=== PATIENT | female | born 1970 | race African-American/Black ===

== ENCOUNTER 2022-09-17 14:30 | Outpatient (RCR) | payer MEDICARE, MEDICAID, SELFPAY ==
--- NOTE | 2022-08-29 12:19 | HP.OTEVAL ---
Patient's Visit Information TRUPTI PAZ is a 52 year old F, referred to Occupational Therapy by SOPHIA SHOEMAKER, with a diagnosis of lymphedema. Date of Evaluation: 08/23/22 Occupational Therapist: Erika Stover, ORTIZR/Marci, CHT - Subjective This 52 year old female was seen for OT eval with dx of BLE with lymphedema- pt states she started getting swelling in LE for about 5 years. pt states she has been seen by a lymphedema clinic in the past 6-8 months ago. pt states she does use 20-30mmHg compression socks and has compression pump 4 chamber pump for her LE pt advised to use compression pump 3x a day for 60 min. pt states she has not used 3x a day but will use 1-2x a day as she can tolerate. pt would like to know what more she can do to improve her lymphedema mtg. - Lymphedema (Circumferential Measure) Mid-foot: right 27cm left 28cm Ankle: right 34cm left 37cm Lower calf: right 46cm left 45cm Largest calf: right 56cm left 58cm Below knee: right 52cm left 52cm - Lower Limb Functional Index Lower Extremity Functional Score: 22 - Goals Demonstrate a 20% reduction in edema by d/c: Yes Demonstrate adequate knowledge of self-massage by 2nd week: Yes Demonstrate adequate knowledge skin care/prec by 2nd week: Yes Demonstrate adequate knowledge therapeutic exercises by d/c: Yes Select approp compression garment w/donning/care/wear by d/c: Yes Voice need to replace compression garment every 4-6mo by dc: Yes - Rehabilitation General Assessment: pt demo with stage II lymphedema and would benefit from skilled OT services for 2-3 visits to ed. pt on life long mtg of her lymphedema, and use of compression socks, compression alternatives (velcro closure) as well as lymph stimulation ex, and self manual lymph massage to perform prior to her compression pump use. pt demo understanding and agree to POC. Rehabilitation Potential: Questionable - Anticipated Interventions Education re Diagnosis, Education re Life-long lymphedema Management, Education re Self-Bandaging Techniques, Education re Skin Care and Precautions, Education re Self Massage Techniques, Education re Correct Donning Tech,Care&Wearing Sched Comp Garments, Caregiver Training, Home Program - Visit Plan TEXT: Thank you for the opportunity to evaluate your patient. For Medicare and Medicare HMO plans, please review the plan of care and approve it. It will need to be FAXED BACK to us at [phone] for Medicare purposes. Please let me know if there are questions or concerns regarding this plan of care. Physician Signature: Date:
--- NOTE | 2022-12-05 15:13 | HP.OT.NRP ---
TRUPTI PAZ was seen in my office for initial evaluation on 08/23/22. The following Plan of Care was established for this patient: Plan: pt to return in 3 weeks for new measurements Anticipated Interventions: Education re Diagnosis, Education re Life-long lymphedema Management, Education re Self-Bandaging Techniques, Education re Skin Care and Precautions, Education re Self Massage Techniques, Education re Correct Donning Tech,Care&Wearing Sched Comp Garments, Caregiver Training, Home Program This patient was last seen in our office 09/17/22. Pertinent comments regarding their Occupational therapy will appear below: pt was seen in OT. No further apts have been scheduled. Due to time lapse in services pt d/c at this time. At this point I will be discontinuing this patient from occupational therapy. I would be happy to see this patient again in the future if found appropriate by the physician. Thank you! Erika Stover, OTR/L, CHT
== END 2022-09-17 19:00 | disposition home or self-care (01) ==
LOC: OT 14:30
DX: I89.0 Lymphedema, not elsewhere classified (principal)
CPT/HCPCS: 97110; 97166; 97530

== ENCOUNTER 2023-03-19 08:46 | Outpatient (RCR) | payer MEDICARE, MEDICAID, SELFPAY ==
--- NOTE | 2023-03-20 09:56 | HP.OTEVAL ---
Patient's Visit Information Visit Information Visit Information: TRUPTI PAZ is a 52 year old F, referred to Occupational Therapy by RICHARD CALIXTO, with a diagnosis of lymphedema. Date of Evaluation: 03/19/23 Occupational Therapist: Erika Stover, BRYANT/Marci, CHT Subjective Subjective: This 52 year old female arrives with bilateral LE lymphedema dx - concerns for lymphedema wrapping products and progress. Pt presented to this clinic August 23, 2022 for initial eval here, stating she was using 20-30 mmHg compression socks. Pt states she has been performing self massage for lymphedema for whole body and is constantly moving knees and ankles while sitting at a computer throughout the day. Pt is wondering about garments being and the correct size for her. ADLs Comments: Pt has assistance with self-care tasks at home in the AM and PM. Aid assists in donning wraps and performing LB lymph massage. Lymphedema (Circumferential Measure) Mid-foot: R 28cm L 29cm Ankle: R 37cm L 38cm Lower calf: R 38cm L 39cm Largest calf: R 56cm L 58.5cm Below knee: R 62cm L 62cm Lower Exremity Comments: Previous Measurements from August Eval - Mid foot: R 27cm L 28cm Ankle: R 34 cm L 37cm Lower calf: R 46cm L 45cm Largest calf: R 56cm L 58cm Below knee: R 52cm L 52cm Pt has been managing lymphedema well over all with the biggest difference and concern for below knee with a 10 cm difference. Lower Limb Functional Index Lower Extremity Functional Score: 33 Goals Goal: Patient will demonstrate a 20% reduction in edema by discharge: Yes Goal: Patient will demonstrate adequate knowledge of self-bandaging by the end of the first week.: Yes Goal: Patient will demonstrate adequate knowledge of self-massage by the end of the second week.: Yes Goal: Patient will demonstrate adequate knowledge of skin care and precautions by the end of the first week.: Yes Goal: Patient will demonstrate adequate knowledge of therapeutic exercises by discharge.: Yes Goal: Patient will select an appropriate compression garment and demonstrate adequate knowledge of correct donning technique, care and wearing schedule by discharge.: Yes Goal: Patient will voice understanding of need to replace compression garment every four to six months by discharge.: Yes Goal:: ed. pt on life long mtg and why exercise and self massage is important. Rehabilitation General Assessment: Pt demo with stage II lymphedema. Pt has been managing lymphedema conservatively and had compression pump to assist with circulation. Due to increase in circumference with measurements there is some concerns with proper management. Pt will benefit from skilled OT for further education and management of lymphedema from 2-3 more visits. Pt edu in self-massage, increase activity to activate groin lymph nodes, and proper fitting compression socks/ or velcro closure compression alternatives. Pt agreeable to POC and verbalizes understanding of edu this date.Therapy session was directly supervised and doc. approved by Erika Stover OTR/Marci,CHT. Rehabilitation Potential: Excellent Anticipated Interventions Anticipated Interventions: Edema Control, Joint Protection/Energy Conservation, Education re Diagnosis, Manual Lymph Drainage, Education re Life-long lymphedema Management, Education re Skin Care and Precautions, Education re Self Massage Techniques, Education re Correct Donning Tech,Care&Wearing Sched Comp Garments, Caregiver Training and Home Program Visit Plan TEXT: Thank you for the opportunity to evaluate your patient. For Medicare and Medicare HMO plans, please review the plan of care and approve it. It will need to be FAXED BACK to us at [phone] for Medicare purposes. Please let me know if there are questions or concerns regarding this plan of care. Physician Signature: Date:
== END 2023-03-19 19:00 | disposition home or self-care (01) ==
LOC: OT 08:46
DX: I89.0 Lymphedema, not elsewhere classified (principal)
CPT/HCPCS: 97166